=== PATIENT | female | born 1995 | race Caucasian/White ===

== ENCOUNTER 2020-08-07 14:18 | Emergency (ER) | payer MEDICAID ==
[2020-08-07] MEDS ORDERED: Sodium Chloride 0.9% 10 ML Syringe FLUSH PRN (14:58)
[2020-08-07] MEDS ORDERED: Ketorolac 30 MG/ML SDV IVPUSH ONE (14:59)
[2020-08-07] MEDS ORDERED: diphenhydrAMINE 50 MG/ML SDV IVPUSH ONE (15:01)
[2020-08-07] MEDS ORDERED: Metoclopramide 10 MG/2 ML SDV IVPUSH ONE (15:01)
--- NOTE | 2020-08-07 15:10 | EDM.PDOC ---
ED HPI GENERAL MEDICAL PROBLEM - General Chief Complaint: Eye Problems Stated Complaint: EYE PAIN Time Seen by Provider: 08/07/20 14:39 Source of Information: Reports: Patient History Limitations: Reports: No Limitations - History of Present Illness INITIAL COMMENTS - FREE TEXT/NARRATIVE: The patient presents with pain behind her eyes and vision changes. This all started on Thursday. 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 The pain is behind her eyes and she had double vision on Thursday. She went to the ER in [place] and they gave her some toradol, zofran and benadryl and the pain was a little better but did not go away. The pain is bad again. She has some blurry vision but no double vision now. She has no numbness or weakness. She has no fever, chills, cough, chest pain, shortness of breath, abdominal pain, nausea or vomiting. She does have a history of migraines but the pain is different tonight. She says it hurts to open her eyes. She has been sleeping a lot over the past few days. She is currently breast feeding. Onset: Gradual Duration: Day(s): Location: Reports: Head Quality: Reports: Sharp Severity: Severe Improves with: Reports: None Worsens with: Reports: None Associated Symptoms: Reports: Headaches. Denies: Chest Pain, Cough, Fever/Chills, Nausea/Vomiting, Shortness of Breath Bilateral Eye Pain Score (Numeric/FACES): 9 - Related Data Allergies Allergy/AdvReac Type Severity Reaction Status Date / Time No Known Allergies Allergy Verified 08/07/20 14:38 Home Meds: Home Meds Cholecalciferol (Vitamin D3) [Vitamin D3] 1,000 mcg PO DAILY 08/07/20 [History] PARoxetine HCL [Paroxetine HCl] 60 mg PO DAILY 08/07/20 [History] Pnv No.95/Ferrous Fum/Folic AC [ Caplet] 1 tab PO DAILY 08/07/20 [History] Past Medical History HEENT History: Reports: Impaired Vision Other HEENT History: wears eyeglasses. Respiratory History: Reports: Asthma Gastrointestinal History: Reports: PUD Genitourinary History: Reports: UTI, Recurrent CLOTH HAND History: Reports: Musculoskeletal History: Reports: Fracture, Other (See Below) Other Musculoskeletal History: hip/pelvis Fx without surgical repair. Neurological History: Reports: Migraines Psychiatric History: Reports: Anxiety, Depression, PTSD Hematologic History: Reports: Anemia, Iron Deficiency - Infectious Disease History Infectious Disease History: Reports: Chicken Pox - Past Surgical History HEENT Surgical History: Reports: Adenoidectomy, Tonsillectomy GI Surgical History: Reports: Cholecystectomy Social & Family History - Tobacco Use Tobacco Use Status *Q: Never Tobacco User Second Hand Smoke Exposure: No - Caffeine Use Caffeine Use: Reports: Soda, Tea - Recreational Drug Use Recreational Drug Use: No ED ROS GENERAL - Review of Systems Review Of Systems: See Below Constitutional: Reports: No Symptoms HEENT: Reports: Eye Pain Respiratory: Reports: No Symptoms Cardiovascular: Reports: No Symptoms Endocrine: Reports: No Symptoms GI/Abdominal: Reports: No Symptoms ED EXAM GENERAL W FULL EYE - Physical Exam Exam: See Below Exam Limited By: No Limitations General Appearance: Alert, No Apparent Distress Eye Exam: Bilateral Eye: EOMI, Normal Fundi, PERRL Eyelids: Bilateral: Normal Appearance Extraocular Movements: Bilateral: Intact Pupillary Size: Bilateral: 4 mm Pupillary Reaction: Bilateral: Brisk Anterior Chamber: Bilateral: Normal Appearance Posterior Chamber: Bilateral: Normal Funduscopic Ears: Normal External Exam Nose: Normal Inspection Head: Atraumatic, Normocephalic Neck: Normal Inspection Respiratory/Chest: No Respiratory Distress, Lungs Clear, Normal Breath Sounds Cardiovascular: Regular Rate, Rhythm, No Edema, No Murmur GI/Abdominal: Soft, Non-Tender, No Organomegaly, No Mass Back Exam: Normal Inspection Course - Vital Signs Last Recorded V/S: Last Vital Signs Temp 98.2 F 08/07/20 14:40 Pulse 58 L 08/07/20 14:40 Resp 16 08/07/20 14:40 BP 108/72 08/07/20 14:40 Pulse Ox 99 08/07/20 14:40 - Orders/Labs/Meds Orders: Active Orders 24 hr Category Date Time Status Peripheral IV Care [RC] . DIRECTED Care 08/07/20 14:58 Active Sodium Chloride 0.9% [Saline Flush] Med 08/07/20 14:58 Active 10 ml FLUSH ASDIRECTED PRN Peripheral IV Insertion Adult [OM.PC] Routine Oth 08/07/20 14:58 Ordered Medication Orders Sodium Chloride (Saline Flush) 10 ml FLUSH ASDIRECTED PRN PRN Reason: Keep Vein Open Last Admin: 08/07/20 15:40 Dose: 10 ml Documented by: [facility] Meds: Medications Generic Name Dose Route Start Last Admin Trade Name Raymond PRN Reason Stop Dose Admin Sodium Chloride 10 ml 08/07/20 14:58 08/07/20 15:40 Saline Flush FLUSH 10 ml ASDIRECTED PRN Administration Keep Vein Open Discontinued Medications Generic Name Dose Route Start Last Admin Trade Name Raymond PRN Reason Stop Dose Admin Diphenhydramine HCl 50 mg 08/07/20 15:01 08/07/20 15:41 Benadryl IVPUSH 08/07/20 15:02 50 mg ONETIME ONE Administration Hydromorphone HCl 1 mg 08/07/20 15:57 08/07/20 16:47 Dilaudid IVPUSH 08/07/20 15:58 1 mg ONETIME ONE Administration Ketorolac Tromethamine 30 mg 08/07/20 14:59 08/07/20 15:45 Toradol IVPUSH 08/07/20 15:00 30 mg ONETIME ONE Administration Metoclopramide HCl 10 mg 08/07/20 15:01 08/07/20 15:43 Reglan IVPUSH 08/07/20 15:02 10 mg ONETIME ONE Administration - Re-Assessments/Exams Free Text/Narrative Re-Assessment/Exam: 08/07/20 15:14 I ordered an IV saline lock, reglan 10mg IV, toradol 30mg IV, benadryl 50mg IV and a CT of her head. 08/07/20 15:[address] of her head shows nothing acute. She still has pain so I ordered dilaudid 1mg IV. 08/07/20 16:58 She feels good and would like to go home and rest. I will discharge her home. Departure - Departure Time of Disposition: 17:00 Disposition: Home, Self-Care 01 Condition: Good Clinical Impression: Headache Qualifiers: Headache type: other headache syndrome Qualified Code(s): G44.89 - Other headache syndrome - Discharge Information *PRESCRIPTION DRUG MONITORING PROGRAM REVIEWED*: Not Applicable *COPY OF PRESCRIPTION DRUG MONITORING REPORT IN PATIENT JAKUB: Not Applicable Referrals: PCP,Not In Area [Primary Care Provider] - Forms: ED Department Discharge Additional Instructions: Go home and rest. 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 Please return if you are worse. Sepsis Event Note (ED) - Evaluation Sepsis Screening Result: No Definite Risk - Focused Exam Vital Signs: Vital Signs Temp Pulse Resp BP Pulse Ox 08/07/20 14:40 98.2 F 58 L 16 108/72 99 - My Orders Last 24 Hours: My Active Orders 08/07/20 14:58 Peripheral IV Care [RC] . DIRECTED Sodium Chloride 0.9% [Saline Flush] 10 ml FLUSH ASDIRECTED PRN Peripheral IV Insertion Adult [OM.PC] Routine - Assessment/Plan Last 24 Hours: My Active Orders 08/07/20 14:58 Peripheral IV Care [RC] . DIRECTED Sodium Chloride 0.9% [Saline Flush] 10 ml FLUSH ASDIRECTED PRN Peripheral IV Insertion Adult [OM.PC] Routine
--- NOTE | 2020-08-07 15:35 | CT ---
Head CT Technique: Multiple axial sections through the brain were obtained. Intravenous contrast was not utilized. Reconstructed coronal and sagittal images were also obtained. Comparison: No prior intracranial imaging is available. Findings: Ventricles along with basal cisterns and sulci over the convexities are within normal limits for the patient's age. No abnormal parenchymal densities are seen. No evidence of intracranial hemorrhage. No midline shift or mass-effect is seen. No retrobulbar abnormality is appreciated. Mastoid sinuses and visualized paranasal sinuses show nothing acute. No acute calvarial finding is appreciated. Impression: 1. Nothing acute is appreciated on noncontrast head CT exam. Diagnostic code #1
[2020-08-07] MEDS ORDERED: HYDROmorphone 1 MG/ML Syringe IVPUSH ONE (15:57)
== END 2020-08-07 17:25 | disposition home or self-care (01) ==
LOC: JD.ED 14:18
DX: G44.89 Other headache syndrome (principal); J45.909 Unspecified asthma, uncomplicated; Z79.899 Other long term (current) drug therapy
CPT/HCPCS: 70450; 96374; 96375; 99284; J1170; J1200; J1885; J2765